=== PATIENT | female | born 1995 | race Caucasian/White ===

== ENCOUNTER → 2018-01-20 | Outpatient (CLI) | payer MEDICAID | LOC: FIMAGING 08:10 | PROVIDERS: ATTEND Nurse Practitioner Family | DX: R11.0 Nausea (principal); R10.11 Right upper quadrant pain ==

== ENCOUNTER 2018-02-08 04:01 | Emergency (ER) | payer MEDICAID ==
[2018-02-08 04:10] VITALS: TEMP 98.8; O2SAT 98
--- NOTE | 2018-02-08 05:33 | EDPHY ---
H & P Stated Complaint: SOB/anxiety Time Seen by Provider: 02/08/18 05:11 HPI/ROS: HPI The patient presents with shortness of breath and concern for anxiety attack, she is brought in by ambulance. The patient was drinking alcohol tonight. She was around some people who were smoking and then began to cough and had a severe coughing fit. She has a history of asthma and smoking him trigger her. This resolved but led to shortness of breath and a feeling of anxiety that persisted for about 30 min. 911 was called. The patient had normal oxygen saturations though seem to be hyperventilating in route. She is now feeling a bit better. She has history of 1 anxiety attack several years ago. She does take Zoloft and Remeron and has been taking these medications lately. She denies any chest pain. She does not have any leg swelling. REVIEW OF SYSTEMS Constitutional: No fever, no chills. Eyes: No discharge. ENT: No sore throat. Cardiovascular: No chest pain, no palpitations. Respiratory: No cough, positive for shortness of breath. Gastrointestinal: No abdominal pain, no vomiting. Genitourinary: No hematuria. Musculoskeletal: No back pain. Skin: No rashes. Neurological: No headache. PMHx: History of anxiety and depression, history of asthma Soc Hx: College student, admits to alcohol use FHx: PHYSICAL General Appearance: Alert, tearful, somewhat anxious appearing Eyes: Pupils equal and round no pallor or injection ENT, Mouth: Mucous membranes moist Respiratory: There are no retractions, lungs are clear to auscultation Cardiovascular: Regular rate and rhythm Gastrointestinal: Abdomen is soft and non-tender, no masses, bowel sounds normal Neurological: A&O, moves all extremities Skin: Warm and dry, no rashes Musculoskeletal: Neck is supple non tender Extremities: symmetrical, full range of motion Psychiatric: Patient is oriented X 3, there is no agitation Source: Patient Exam Limitations: No limitations - Personal History Current Tetanus/Diphtheria Vaccine: Yes Current Tetanus Diphtheria and Acellular Pertussis (TDAP): Yes - Medical/Surgical History Hx Asthma: Yes Hx Chronic Respiratory Disease: No Hx Diabetes: No Hx Cardiac Disease: No Hx Renal Disease: No Hx Cirrhosis: No Hx Alcoholism: No Hx HIV/AIDS: No Hx Splenectomy or Spleen Trauma: No Other PMH: asthma, anxiety - Social History Smoking Status: Never smoked Constitutional: Initial Vital Signs Temperature (C) 37.1 C 02/08/18 04:08 Heart Rate 116 H 02/08/18 04:08 Respiratory Rate 22 H 02/08/18 04:08 Blood Pressure 127/86 H 02/08/18 04:08 O2 Sat (%) 98 02/08/18 04:08 O2 Delivery Mode Room Air Allergies/Adverse Reactions: No Known Allergies Allergy (Verified 02/08/18 04:09) Home Medications: Medication Instructions Recorded Albuterol 03/10/15 Albuterol [Proventil Inhaler] 1 - 2 puffs IH Q4 #1 mdi 03/10/15 Bcp 06/24/16 Sulfamethox/Tmp 06/24/16 Remeron 02/08/18 Zoloft 100mg (*) 02/08/18 Medical Decision Making Differential Diagnosis: This is a 22-year-old female, college student, history of asthma and anxiety presents brought in by ambulance for shortness of breath and anxiety. On arrival, her vital signs are normal with normal oxygen saturation but she is somewhat tachypneic. Lungs are clear. Differential diagnosis includes anxiety attack, less likely asthma exacerbation , less likely arrhythmia. The patient was monitored for several hours. She continued to feel better and better. Friends were able to pick her up from the emergency department and she was discharged safely. Departure - Departure Disposition: Home, Routine, Self-Care Clinical Impression: Shortness of breath, Anxiety attack Condition: Good Instructions: Anxiety (ED) Additional Instructions: Please return to the emergency department if you are worse in any way. Referrals: [facility],. [Clinic] - As per Instructions
[2018-02-08 05:49] VITALS: BP 118/78; PULSE 86; RESP 18
== END 2018-02-08 05:49 | disposition home or self-care (01) ==
LOC: EDUNIT#
DX: R06.02 Shortness of breath (principal); F41.9 Anxiety disorder, unspecified; J45.909 Unspecified asthma, uncomplicated